=== PATIENT | male | born 1955 | race Two or more races ===

== ENCOUNTER 2018-01-22 17:40 | Inpatient (IN) | payer MEDICAID ==
[~2018-01-22] VITALS: Ht 180.3 cm; Wt 70.3 kg
[2018-01-22] MEDS ORDERED: NITROGLYCERIN OINT 1 GM PACKET TP ONE ×2 (17:45→17:56)
[2018-01-22] MEDS ORDERED: ASPIRIN 81 MG TAB.CHEW PO ONE (17:45)
[2018-01-22] MEDS ORDERED: ASPIRIN 81 MG TAB.CHEW ONE (17:56)
[2018-01-22] MEDS ORDERED: ASPI-612 PO (18:11)
[2018-01-22] MEDS ORDERED: LEVE1000 PO (18:11)
[2018-01-22] MEDS ORDERED: ATOR20TA PO (18:11)
[2018-01-22] MEDS ORDERED: CARV3.122 PO (18:11)
[2018-01-22] MEDS ORDERED: FURO40TA5 PO (18:11)
[2018-01-22] MEDS ORDERED: PARO40TA4 PO (18:11)
[2018-01-22] MEDS ORDERED: SACU1TAB PO (18:11)
[2018-01-22] MEDS ORDERED: SPIR25TA6 PO (18:11)
[2018-01-22] MEDS ORDERED: LISI30TA4 PO (18:11)
[2018-01-22] MEDS ORDERED: AMIT10TA32 PO (18:11)
[2018-01-22] MEDS ORDERED: IBUP-1957 PO (18:11)
[2018-01-22] MEDS ORDERED: CLON2TAB11 PO (18:11)
[2018-01-22 18:40] LABS: BASOPHILS # (AUTO) 0.1 K/uL (0.0-8.0); BASOPHILS % (AUTO) 1.2 % (0.0-2.0); EOSINOPHILS # (AUTO) 0.2 K/uL (0.0-0.7); EOSINOPHILS % (AUTO) 3.7 % (0.0-7.0); HEMATOCRIT 41.2 % (36.7-47.1); HEMOGLOBIN 13.4 g/dL (12.5-16.3); LYMPHOCYTES # (AUTO) 1.5 K/uL (20.0-40.0); MEAN CORPUSCULAR HEMOGLOBIN 31.2 uug (23.8-33.4); MEAN CORPUSCULAR HGB CONC 32 g/dL (32.5-36.3); MEAN CORPUSCULAR VOLUME 96.1 fL (73.0-96.2); MONOCYTES # (AUTO) 0.3 K/uL (2.0-10.0); MONOCYTES % (AUTO) 6.7 % (0.0-11.0); NEUTROPHILS % (AUTO) 59.4 % (38.5-71.5); PLATELET COUNT (AUTO) 149 K/uL (152-348); RED BLOOD CELL COUNT(AUTO) 4.29 MIL/uL (4.06-5.63); WHITE BLOOD COUNT (AUTO) 5.1 K/uL (3.6-10.2)
[2018-01-22 18:45] LABS: CREATININE 0.8 mg/dL (0.6-1.3); POTASSIUM 3.3 mmol/L (3.5-5.1)
[2018-01-22 18:51] LABS: BILIRUBIN,DIRECT 0.2 mg/dL (0.0-0.2); BILIRUBIN,TOTAL 0.7 mg/dL (0.2-1.0); TOTAL PROTEIN, SERUM 6.3 g/dL (6.4-8.2)
[2018-01-22] MEDS ORDERED: NITROGLYCERIN 0.4 MG/TAB BOTTLE SL ONE ×2 (19:30→19:35)
[2018-01-22] MEDS ORDERED: ONDANSETRON 4 MG/2 ML VIAL IV ONE (20:00)
[2018-01-22] MEDS ORDERED: MORPHINE SULFATE 2 MG/1 ML DISP.SYRIN IV ONE ×2 (20:00→21:30)
[2018-01-22] MEDS ORDERED: IV NORMAL SALINE 250 ML BAG IV ONE (20:00)
[2018-01-22] MEDS ORDERED: MORPHINE SULFATE 2 MG/1 ML DISP.SYRIN ONE ×2 (20:04→21:22)
[2018-01-22] MEDS ORDERED: ONDANSETRON 4 MG/2 ML VIAL ONE (20:04)
[2018-01-22] MEDS ORDERED: POTASSIUM BICARBONATE/CIT AC 25 MEQ TABLET.EFF PO ONE (20:15)
[2018-01-22] MEDS ORDERED: POTASSIUM BICARBONATE/CIT AC 25 MEQ TABLET.EFF ONE (20:56)
[2018-01-22] MEDS ORDERED: ACETAMINOPHEN 325 MG TABLET PO PRN (21:15)
[2018-01-22] MEDS ORDERED: MORPHINE SULFATE 2 MG/1 ML DISP.SYRIN IV PRN (21:15)
[2018-01-22] MEDS ORDERED: HYDROCODONE/APAP 5-325MG TABLET PO PRN (21:15)
[2018-01-22] MEDS ORDERED: ONDANSETRON 4 MG/2 ML VIAL IV PRN (21:15)
[2018-01-22] MEDS ORDERED: MAGNESIUM HYDROXIDE 30 ML LIQUID UDC PO PRN (21:15)
[2018-01-22] MEDS ORDERED: NITROGLYCERIN 0.4 MG/TAB BOTTLE SL PRN (21:15)
[2018-01-22] MEDS ORDERED: ZOLPIDEM 5 MG TABLET PO PRN (21:15)
[2018-01-22 21:55] VITALS: BP 113/79
[2018-01-23] VITALS (7 sets, daily range): BP systolic 87–116; BP diastolic 55–83
[2018-01-23 06:17] LABS: THYROID STIMULATING HORMONE 2.31 mIU/mL (0.358-3.740)
[2018-01-23 06:28] LABS: BASOPHILS # (AUTO) 0.1 K/uL (0.0-8.0); BASOPHILS % (AUTO) 1.1 % (0.0-2.0); EOSINOPHILS # (AUTO) 0.3 K/uL (0.0-0.7); EOSINOPHILS % (AUTO) 5.5 % (0.0-7.0); HEMATOCRIT 37.9 % (36.7-47.1); HEMOGLOBIN 12.3 g/dL (12.5-16.3); LYMPHOCYTES # (AUTO) 1.8 K/uL (20.0-40.0); LYMPHOCYTES % (AUTO) 38.6 % (20.5-51.5); MEAN CORPUSCULAR HEMOGLOBIN 30.5 uug (23.8-33.4); MEAN CORPUSCULAR HGB CONC 33 g/dL (32.5-36.3); MEAN CORPUSCULAR VOLUME 93.9 fL (73.0-96.2); MONOCYTES # (AUTO) 0.3 K/uL (2.0-10.0); MONOCYTES % (AUTO) 7.3 % (0.0-11.0); NEUTROPHILS # (AUTO) 2.2 K/uL (1.8-8.9); NEUTROPHILS % (AUTO) 47.5 % (38.5-71.5); PLATELET COUNT (AUTO) 151 K/uL (152-348); RED BLOOD CELL COUNT(AUTO) 4.04 MIL/uL (4.06-5.63); WHITE BLOOD COUNT (AUTO) 4.7 K/uL (3.6-10.2)
[2018-01-23 06:38] LABS: CREATININE 0.8 mg/dL (0.6-1.3); MAGNESIUM 1.7 mg/dL (1.8-2.4); PHOSPHOROUS 3.5 mg/dL (2.5-4.9); POTASSIUM 3.9 mmol/L (3.5-5.1)
[2018-01-23] MEDS: ASPIRIN 81 MG TAB.CHEW PO SCH (08:02)
[2018-01-23] MEDS: PAROXETINE HCL 20 MG TABLET PO SCH (08:02)
[2018-01-23] MEDS: LEVETIRACETAM 500 MG TABLET PO SCH ×2 (08:02→20:41)
[2018-01-23] MEDS: SPIRONOLACTONE 25 MG TABLET PO SCH (08:11)
[2018-01-23] MEDS: ISOSORBIDE MONONITRATE 60 MG TAB.SR.24H PO SCH (08:11)
[2018-01-23] MEDS: CARVEDILOL 3.125 MG TABLET PO SCH ×2 (08:11→17:03)
[2018-01-23] MEDS: FUROSEMIDE 40 MG TABLET PO SCH (08:12)
[2018-01-23] MEDS: LISINOPRIL 10 MG TABLET PO SCH (08:12)
[2018-01-23 08:50] LABS: *BLOOD, URINE NEGATIVE (NEGATIVE); *CLARITY,URINE SLIGHTLY CLOUDY (CLEAR); *COLOR,URINE DARK YELLOW (YELLOW); *KETONES,URINE NEGATIVE (NEGATIVE); *PROTEIN,URINE 2+ (NEGATIVE); LEUKOCYTE ESTERASE ,URINE NEGATIVE (NEGATIVE); NITRITE, URINE NEGATIVE (NEGATIVE); UGLUCOSE NEGATIVE (NEGATIVE)
[2018-01-23 08:53] LABS: *BILIRUBIN,URIN 1+ (NEGATIVE)
[2018-01-23] MEDS ORDERED: ASPIRIN 325 MG TABLET PO SCH (09:00)
[2018-01-23] MEDS ORDERED: LEVETIRACETAM 250 MG TABLET PO SCH (09:00)
[2018-01-23] MEDS ORDERED: AMITRIPTYLINE HCL 10 MG TABLET PO SCH ×2 (09:00)
[2018-01-23 09:03] LABS: BACTERIA,URINE FEW /HPF (NONE SEEN); MUCUS,URINE MANY /LPF (0-FEW); RBC,URINE 0-3 /HPF (0-3); SQUAMOUS EPITHELIAL CELL,UR FEW /HPF (NONE SEEN)
[2018-01-23] MEDS ORDERED: MAGNESIUM OXIDE 400 MG TABLET PO ONE (11:45)
[2018-01-23] MEDS: ATORVASTATIN 40 MG TABLET PO SCH (20:41)
[2018-01-23] MEDS ORDERED: ATORVASTATIN 20 MG TABLET PO SCH ×2 (21:00)
[2018-01-24 03:38] VITALS: BP 124/89
[2018-01-24 06:44] LABS: CREATININE 0.7 mg/dL (0.6-1.3)
[2018-01-24] MEDS: PAROXETINE HCL 20 MG TABLET PO SCH (08:45)
[2018-01-24] MEDS: ASPIRIN 81 MG TAB.CHEW PO SCH (08:45)
[2018-01-24] MEDS: CLONAZEPAM 1 MG TABLET PO SCH (08:46)
[2018-01-24] MEDS: FUROSEMIDE 40 MG TABLET PO SCH (08:48)
[2018-01-24] MEDS: SPIRONOLACTONE 25 MG TABLET PO SCH (08:48)
[2018-01-24] MEDS: LEVETIRACETAM 500 MG TABLET PO SCH ×2 (08:48→20:25)
[2018-01-24] MEDS: CARVEDILOL 3.125 MG TABLET PO SCH ×2 (08:49→17:47)
[2018-01-24] MEDS ORDERED: ASPI81TA31 PO (11:27)
[2018-01-24] MEDS ORDERED: Isosorbide Mononitrate PO (11:27)
[2018-01-24] MEDS ORDERED: ATOR40TA PO (11:27)
[2018-01-24] MEDS ORDERED: MAGNESIUM OXIDE 400 MG TABLET PO ONE (11:45)
[2018-01-24] MEDS ORDERED: MAGNESIUM SULFATE/D5W 100 ML IV SCH (11:45)
[2018-01-24] MEDS: ISOSORBIDE MONONITRATE 60 MG TAB.SR.24H PO SCH (11:51)
[2018-01-24] MEDS: LISINOPRIL 10 MG TABLET PO SCH ×2 (11:52→16:00)
[2018-01-24 12:00] VITALS: BP 111/78
[2018-01-24 16:13] VITALS: BP 92/62
[2018-01-24 19:00] VITALS: BP 97/68
[2018-01-24] MEDS: ATORVASTATIN 40 MG TABLET PO SCH (20:25)
[2018-01-25] VITALS: BP 105/76
[2018-01-25 04:00] VITALS: BP 118/82
[2018-01-25 06:30] LABS: CREATININE 0.8 mg/dL (0.6-1.3); MAGNESIUM 1.8 mg/dL (1.8-2.4); POTASSIUM 4.1 mmol/L (3.5-5.1)
[2018-01-25] MEDS: CARVEDILOL 3.125 MG TABLET PO SCH (07:56)
[2018-01-25] MEDS: SPIRONOLACTONE 25 MG TABLET PO SCH (08:03)
[2018-01-25] MEDS: PAROXETINE HCL 20 MG TABLET PO SCH (08:03)
[2018-01-25] MEDS: CLONAZEPAM 1 MG TABLET PO SCH (08:04)
[2018-01-25] MEDS: ASPIRIN 81 MG TAB.CHEW PO SCH (08:04)
[2018-01-25] MEDS: FUROSEMIDE 40 MG TABLET PO SCH (08:04)
[2018-01-25] MEDS: LEVETIRACETAM 500 MG TABLET PO SCH (08:04)
[2018-01-25] MEDS: ISOSORBIDE MONONITRATE 60 MG TAB.SR.24H PO SCH (11:30)
[2018-01-25] MEDS: LISINOPRIL 10 MG TABLET PO SCH (11:30)
[2018-01-25 12:00] VITALS: BP 102/66
[2018-01-25 16:00] VITALS: BP 99/63
== END 2018-01-25 17:07 | disposition home or self-care (01) | DRG 198 ==
LOC: ER 17:42 → TELE 21:09 → MED 01-24 19:00
DX: I25.118 Atherosclerotic heart disease of native coronary artery with other forms of angina pectoris (principal); I50.43 Acute on chronic combined systolic (congestive) and diastolic (congestive) heart failure; D69.6 Thrombocytopenia, unspecified; I69.254 Hemiplegia and hemiparesis following other nontraumatic intracranial hemorrhage affecting left non-dominant side; I11.0 Hypertensive heart disease with heart failure; Z95.1 Presence of aortocoronary bypass graft; I25.5 Ischemic cardiomyopathy; Z95.5 Presence of coronary angioplasty implant and graft; I69.211 Memory deficit following other nontraumatic intracranial hemorrhage; G89.29 Other chronic pain; T14.90XS Injury, unspecified, sequela; V89.2XXS Person injured in unspecified motor-vehicle accident, traffic, sequela; Z79.82 Long term (current) use of aspirin; I25.2 Old myocardial infarction; E87.6 Hypokalemia; F32.9 Major depressive disorder, single episode, unspecified; Z79.899 Other long term (current) drug therapy; Z95.810 Presence of automatic (implantable) cardiac defibrillator
CPT/HCPCS: 36415; 70030-TC; 71045; 83735; 84100; 84443; 85025; 85730; 87077; 87086; 93005; 93307; A4663; J2270; J2405; J7050